=== PATIENT | female | born 1970 | race Two or more races ===

== ENCOUNTER 2016-10-31 15:20 | Emergency (ER) | payer OTHER, SELFPAY ==
[~2016-10-31] VITALS: Ht 172.7 cm; Wt 81.8 kg
[2016-10-31 15:21] VITALS: BP 135/69
[2016-10-31] MEDS ORDERED: ADDE30CA3 PO (15:36)
[2016-10-31] MEDS ORDERED: LEVO150T7 PO (15:36)
[2016-10-31] MEDS ORDERED: EXCETAB80 PO (15:36)
[2016-10-31] MEDS ORDERED: NORCOTAB PO (15:49)
[2016-10-31] MEDS ORDERED: CLEO300C2 PO (15:49)
[2016-10-31] MEDS ORDERED: CIPR0.3S AS (15:49)
== END 2016-10-31 16:10 | disposition home or self-care (01) ==
LOC: M ED 15:20
DX: H65.05 Acute serous otitis media, recurrent, left ear (principal); F90.9 Attention-deficit hyperactivity disorder, unspecified type; E07.9 Disorder of thyroid, unspecified; Z87.891 Personal history of nicotine dependence; Z79.899 Other long term (current) drug therapy